=== PATIENT | female | born 1985 | race Caucasian/White ===

== ENCOUNTER 2022-03-18 14:55 | Emergency (ER) | payer SELFPAY ==
[2022-03-18 15:05] VITALS: BP 132/71; PULSE 84; RESP 16; TEMP 36.6; O2SAT 99
--- NOTE | 2022-03-18 15:32 | ED.SKABFB ---
HPI - Skin/Abscess/Foreign Bdy General Chief complaint: Skin/Abscess/Foreign Body Stated complaint: left leg rash Time Seen by Provider: 03/18/22 15:24 Source: patient Mode of arrival: ambulatory Limitations: no limitations History of Present Illness HPI narrative: Patient presents today with a 1 week history of a rash to her left anterior lower leg that has been worsening since onset. Reports it first initially started as a blister that popped. The area under the blister has continued to spread and depth and width and has continued to drain clear fluid. Other areas have popped up and are draining as well. She has been applying antibiotic ointment. Patient states she has been sleeping in her car so she has been unable to properly care for her wound. Related Data Home Medications Medication Instructions Recorded Confirmed aripiprazole 5 mg tablet mg 03/18/22 hydroxyzine HCl 50 mg tablet mg 03/18/22 naltrexone 50 mg tablet mg 03/18/22 olanzapine 10 mg tablet mg 03/18/22 propranolol 10 mg tablet mg 03/18/22 Allergies Allergy/AdvReac Type Severity Reaction Status Date / Time No Known Allergies Allergy Unverified 03/02/18 12:53 Review of Systems Review of Systems: CONSTITUTIONAL: Denies body aches, fever, chills, or sweats. EYES: Denies visual changes, redness, or discharge. ENT: Denies rhinorrhea, congestion, sore throat, or otalgia. CARDIOVASCULAR: Denies chest pain, palpitations, or edema. RESPIRATORY: Denies cough or dyspnea. GASTROINTESTINAL: Denies abdominal pain, nausea, vomiting, or diarrhea. GENITOURINARY: Denies dysuria or hematuria. SKIN: + Rash and wound to left lower leg MUSCULOSKELETAL: Denies back pain, joint pain, or myalgia. NEUROLOGIC: Denies headache, numbness, tingling, or weakness. PSYCH: Denies depression or anxiety. PMFSH Comments At time of signature, I have reviewed and agree with nursing past medical, surgical, social and family history unless otherwise noted. Please see nursing chart for further information. There is no relevant family history pertinent to the presenting complaint Exam Narrative: GENERAL: Well-appearing, well-nourished, and in no acute distress. HEAD: Normocephalic, atraumatic. EYES: EOMI. No redness or drainage. Conjunctivae normal. ENT: Mucous membranes pink and moist. NECK: Normal AROM. CHEST: No respiratory distress. EXTREMITIES: Normal range of motion. No edema. SKIN: Warm. Capillary refill normal. Normal skin turgor. 6 x 6 area of erythema with tiny areas of weeping to the left lower anterior leg. 2 x 2 area of ulceration with green purulent base to the center. NEURO: No focal deficits. Alert and oriented x3. Gait steady. PSYCH: Normal affect. No signs of depression or anxiety. Course Course Level of Care: Express Care Visit Vital Signs Vital signs: Vital Signs Temperature 97.9 F 03/18/22 15:05 Pulse Rate 84 03/18/22 15:05 Respiratory Rate 16 03/18/22 15:05 Blood Pressure 132/71 03/18/22 15:05 Pulse Oximetry 99 03/18/22 15:05 Oxygen Delivery Room Air 03/18/22 15:05 Temperature 97.9 F 03/18/22 15:05 Pulse Rate 84 03/18/22 15:05 Respiratory Rate 16 03/18/22 15:05 Blood Pressure 132/71 03/18/22 15:05 Pulse Oximetry 99 03/18/22 15:05 Oxygen Delivery Room Air 03/18/22 15:05 Reviewed. Pt has been instructed to follow up with her PCP regarding her elevated blood pressure today. MDM - Skin/Abscess/Foreign Bdy Differential Diagnosis Differential diagnosis: Likely abscess of skin or subcutaneous tissue, cellulitis, impetigo and contact dermatitis Critical Care Time Critical Care Time Critical Care Time: No Discharge Plan Discharge Clinical Impression: Cellulitis of left leg, Open wound of left lower extremity Patient Disposition: Home, Self-Care Condition: Stable Instructions: Antibiotic Form, Cellulitis (ED) Additional Instructions: Please take the clindamycin as prescribed un
== END 2022-03-18 15:50 | disposition home or self-care (01) ==
PROVIDERS: Emergency Provider Nurse Practitioner; PCP Nurse Practitioner Family
DX: L03.116 Cellulitis of left lower limb (principal); S81.802A Unspecified open wound, left lower leg, initial encounter; X58.XXXA Exposure to other specified factors, initial encounter
CPT/HCPCS: 99213; G0463